=== PATIENT | female | born 1995 | race Caucasian/White ===

== ENCOUNTER 2020-07-20 00:33 | Observation (INO) | payer OTHER ==
[~2020-07-20] VITALS: Ht 160 cm; Wt 95.1 kg
[2020-07-20 06:08] LABS: BASOPHILS ABSOLUTE AUTO 0.04 K/mm3 (0.00-0.23); BASOPHILS PERCENT AUTO 0 % (0-2); EOSINOPHILS ABSOLUTE AUTO 0.03 K/mm3 (0.00-0.68); EOSINOPHILS PERCENT AUTO 0 % (0-6); Hematocrit 37.9 % (33.0-51.0); Hemoglobin 13.2 g/dL (11.5-16.0); IMMATURE GRAN ABSOLUTE AUTO 0.04 K/mm3 (0.00-0.10); IMMATURE GRAN PERCENT AUTO 0 % (0-1); LYMPHOCYTES ABSOLUTE AUTO 2.79 K/mm3 (0.84-5.20); LYMPHOCYTES PERCENT AUTO 20 % (21-46); MONOCYTES ABSOLUTE AUTO 0.47 K/mm3 (0.16-1.47); MONOCYTES PERCENT AUTO 3 % (4-13); Mean Corpuscular HGB 30.7 pg (26.0-34.0); Mean Corpuscular HGB Conc 34.8 g/dL (31.5-36.5); Mean Corpuscular Volume 88 fL (80-100); Mean Platelet Volume 8.9 fL (9.1-12.4); NEUTROPHILS PERCENT AUTO 76 % (41-73); Platelet Count 330 K/mm3 (150-400); RDW Coefficient Variation 12.8 % (11.7-14.2); RDW Standard Deviation 41.7 fL (35.1-46.3); White Blood Cell Count 14.17 K/mm3 (4.00-11.30)
[2020-07-20 06:26] LABS: Alanine Aminotransfer (ALT/SGP 20 U/L (12-78); Albumin, Blood 3.5 g/dL (3.4-5.0); Albumin/Globulin Ratio 0.8 (0.8-1.8); Alk Phos 52 U/L (50-136); Anion Gap 10 mmol/L (6-16); Aspartate Aminotrans (AST/SGOT 13 U/L (12-37); Bilirubin, Total 0.5 mg/dL (0.1-1.0); Blood Urea Nitrogen 5 mg/dL (8-24); Bun/Creatinine Ratio 9.8 (12.0-20.0); CO2, Blood 22 mmol/L (21-32); Calcium, Blood 9.5 mg/dL (8.5-10.1); Chloride, Blood 105 mmol/L (98-108); Creatinine, Blood 0.51 mg/dL (0.40-1.00); Globulin, Blood 4.5 g/dL (2.2-4.0); Glomerular Filtration Rate >60 (60-); Glucose, Blood 96 mg/dL (70-99); Potassium, Blood 3.8 mmol/L (3.5-5.5); Sodium, Blood 137 mmol/L (136-145)
[2020-07-20] MEDS ORDERED: PRENATAL TABLE1 EAC2 PO (08:29)
[2020-07-20 11:24] LABS: Influenza A, PCR NEGATIVE (NEGATIVE); Influenza B, PCR NEGATIVE (NEGATIVE); Resp Syncytial Virus, PCR NEGATIVE (NEGATIVE); SARS-Cov-2 (COVID-19) PCR, MMC NEGATIVE (NEGATIVE)
--- NOTE | 2020-07-20 14:58 | NUR ---
1450 to day surgery via cart
--- NOTE | 2020-07-20 16:46 | NUR ---
07/20/20 1646 Chris Snowden PT ON SCHEDULED ANTIBIOTICS
--- NOTE | 2020-07-20 18:22 | NUR ---
181 RETURN TO ROOM FROM PACU ABD LAP SITES X4 WITH DERMABOND, NO DRAINAGE. PT REPORTS CURRENT ABD PAIN 2-3 WHICH IS ACCEPTABLE LEVEL PER PATIENT. PT DENIES NAUSEA, GIVEN JUICE, CRACKERS AND WATER. PTS SIGNIFICANT OTHER AT BEDSIDE
--- NOTE | 2020-07-21 05:36 | NUR ---
SHIFT SUMMARY PT IS A/O X4, IND/SBA UP IN ROOM. TOELRATING PO INTAKE W/O NAUSEA AND VOIDING. PT REPORTS PASSING FLATUS OVENRIGHT. INCISIONS TO ABD CDI WITH STERI STRIPS IN PLACE. PAIN MANAGED WITH NORCO X1 ABOUT Q4. PT HAS AMBULATED IN HALLWAY AND HAS BEEN UP TO BATHROOM MULT TIMES. RESTING IN BED AT THIS TIME, CALL LIGHT IN REACH.
[2020-07-21] MEDS ORDERED: HYDR1TAB94 PO (10:29)
--- NOTE | 2020-07-21 13:04 | NUR ---
DISCHARGE: PT BEEN RECENTLY DISCHARGED BY EMULSION OPERATOR. PT REPORTED TO BE SENT WITH PAPERWORK INCLUDING SCRIPT. PT BEEN EATING AND DRINKING, VOIDING, PASSING GAS. PT TOLERATING DIET. PT REPORTED TO WANT TO AMBULATE OUT. PT BEEN UP IND. WITH STEADY GAIT. IV BEEN OUT WNL.
== END 2020-07-21 12:55 | disposition home or self-care (01) ==
LOC: ER 00:33 → SURS 00:34
PROVIDERS: Emergency Medicine; ADMIT Surgery
DX: O99.611 Diseases of the digestive system complicating pregnancy, first trimester (principal); K80.00 Calculus of gallbladder with acute cholecystitis without obstruction; O99.211 Obesity complicating pregnancy, first trimester; E66.9 Obesity, unspecified; Z3A.13 13 weeks gestation of pregnancy; Z88.0 Allergy status to penicillin; Z20.822 Contact with and (suspected) exposure to COVID-19
CPT/HCPCS: 0241U; 36415; 76705; 80053; 83690; 85025; 88304; 96361-59; 96365-59; 96375; 99284-25; A9270; G0378; J1100; J1885; J2185; J2405; J2704; J2765; J3010; J7120

== ENCOUNTER 2020-11-13 06:23 | Inpatient (IN) | payer OTHER | END 2020-11-13 14:10 | disposition home or self-care (01) | DRG 807 | LOC: BC 06:23 | PROVIDERS: ADMIT Registered Nurse Community Health | PROC: 10E0XZZ Delivery of Products of Conception, External Approach (ICD-10-PCS; principal; 2020-11-13) | PROC: 10907ZC Drainage of Amniotic Fluid, Therapeutic from Products of Conception, Via Natural or Artificial Opening (ICD-10-PCS; 2020-11-13) | DX: O60.14X0 Preterm labor third trimester with preterm delivery third trimester, not applicable or unspecified (principal); Z37.0 Single live birth; O69.1XX0 Labor and delivery complicated by cord around neck, with compression, not applicable or unspecified; Z20.822 Contact with and (suspected) exposure to COVID-19; Z3A.30 30 weeks gestation of pregnancy; Z88.0 Allergy status to penicillin; Z91.048 Other nonmedicinal substance allergy status ==

== ENCOUNTER → 2023-04-04 | Outpatient (CLI) | payer OTHER ==
[~2023-04-04] MED LIST: HYDR1TAB94 PO; PRENATAL TABLE1 EAC2 PO
== END ==
LOC: LAB SHORT 10:40 → LAB 10:40
DX: M54.50 Low back pain, unspecified (principal)
CPT/HCPCS: 87077; 87086; 87186

== ENCOUNTER → 2024-04-29 | Outpatient (CLI) | payer OTHER ==
[2024-05-03 07:17] LABS: APTIMA MEDIA TYPE MultiTest Swab; C. TRACHOMATIS BY TMA Negative (Negative); N. GONORRHOEAE BY TMA Negative (Negative); SPECIMEN SOURCE Vaginal; T. VAGINALIS BY TMA Negative (Negative)
== END ==
LOC: LAB SHORT 11:35 → LAB 11:35
PROVIDERS: Registered Nurse Community Health
DX: Z11.3 Encounter for screening for infections with a predominantly sexual mode of transmission (principal); Z20.2 Contact with and (suspected) exposure to infections with a predominantly sexual mode of transmission
CPT/HCPCS: 87491; 87591; 87661

== ENCOUNTER 2024-07-20 05:37 | Day surgery (SDC) | payer OTHER ==
[2024-07-20] VITALS (10 sets, daily range): BP systolic 95–151; BP diastolic 80–100
[2024-07-20] MEDS ORDERED: Lactated Ringer's 1,000 ML IV SCH (06:25)
[2024-07-20] MEDS ORDERED: Lidocaine HCl 2% 20 ML MDV ONE (06:55)
[2024-07-20] MEDS ORDERED: Midazolam HCl 1MG / ML 2ML Vial ONE (06:55)
[2024-07-20] MEDS ORDERED: propofoL 20 ML IV ONE (06:55)
[2024-07-20] MEDS ORDERED: FentaNYL Citrate 50 MCG/ML 2 ML Injection ONE ×3 (06:55→09:11)
[2024-07-20] MEDS ORDERED: Bupivacaine 0.5% HCl 5 MG/ML 30MLVIAL ONE (07:09)
[2024-07-20] MEDS ORDERED: Rocuronium Bromide 10 MG/ML 5ML Injection IV ONE ×2 (07:15→07:57)
[2024-07-20] MEDS ORDERED: Dexamethasone Sod Phos 10 MG/ML 1ML VIAL ONE (07:15)
[2024-07-20] MEDS ORDERED: Ondansetron HCl 2 MG / ML 2ML Vial ONE (07:15)
[2024-07-20] MEDS ORDERED: CeFAZolin Sodium 2,000 MG in NS 100 ML IV SCH (07:15)
[2024-07-20] MEDS ORDERED: FentaNYL Citrate 50 MCG/ML 2 ML Injection IV PRN (07:25)
[2024-07-20] MEDS ORDERED: Scopolamine Hydrobromide Patch TOP SCH (07:25)
[2024-07-20] MEDS ORDERED: Ondansetron HCl 2 MG / ML 2ML Vial IV PRN ×2 (07:25→09:35)
[2024-07-20] MEDS ORDERED: HYDROmorphone HCl 0.5 MG/0.5 ML SYR IV PRN ×2 (07:25→07:30)
[2024-07-20] MEDS ORDERED: CeFAZolin Sodium 2,000 MG VIAL ONE (07:31)
--- NOTE | 2024-07-20 07:36 | NUR ---
Ambulatory in Day SurgeryPre-Op teaching done. Pt verbalizes understanding. History, Chart, Medications and Allergies reviewed before start of procedure.Patient States Post-Procedure ride home has been arranged. Patient reports completing Chlorhexadine shower X2 prior to admission to hospital.Patient confirms NPO status and agrees with scheduled surgery.
[2024-07-20] MEDS ORDERED: Ketorolac Tromethamine 30mg Vial ONE (07:57)
[2024-07-20] MEDS ORDERED: Sugammadex Sodium 200 MG/2ML SDV (100 MG/ML) ONE (08:36)
[2024-07-20] MEDS ORDERED: Scopolamine Hydrobromide Patch ONE (08:43)
[2024-07-20] MEDS ORDERED: HYDROmorphone HCl 0.5 MG/0.5 ML SYR ONE (09:12)
[2024-07-20] MEDS ORDERED: OxyCODONE 5 mg/Acetamin 325 mg TABLET PO PRN (09:35)
--- NOTE | 2024-07-20 10:26 | NUR ---
Discharge instructions reviewed with patient. Patient verbalizes understanding. Copy given to patient to take home. Prescription alrady picked up by pt. Moderate bleeding on timi-pad, pt is on her menses. Extra pads provided. Patient States Post-Procedure ride home has been arranged. Discharged via wheelchair to private car for ride home.
== END 2024-07-20 10:27 | disposition home or self-care (01) ==
LOC: ORSCMMR 05:37 → ORD 07:30 → ORSCMMR 07:30
PROVIDERS: Obstetrics & Gynecology
PROC: 0UT74ZZ Resection of Bilateral Fallopian Tubes, Percutaneous Endoscopic Approach (ICD-10-PCS; principal; 2024-07-20 07:30)
PROC: 8E0UXY7 Examination of Female Reproductive System (ICD-10-PCS; principal; 2024-07-20 07:30)
DX: Z30.2 Encounter for sterilization (principal); J45.909 Unspecified asthma, uncomplicated; Z87.891 Personal history of nicotine dependence; K21.9 Gastro-esophageal reflux disease without esophagitis; F41.9 Anxiety disorder, unspecified; F32.A Depression, unspecified; E28.2 Polycystic ovarian syndrome; E66.9 Obesity, unspecified; Z68.34 Body mass index [BMI] 34.0-34.9, adult; Q79.60 Ehlers-Danlos syndrome, unspecified
CPT/HCPCS: 88302; A9270; J0690; J1100; J1171; J1885; J2250; J2405; J2704; J3010; J7120